=== PATIENT | female | born 1975 | race Hispanic/Latino ===

== ENCOUNTER 2023-05-14 08:29 | Emergency (ER) | payer BC, OTHER ==
[~2023-05-14] VITALS: Ht 172.7 cm; Wt 120.2 kg
[2023-05-14 09:11] LABS: HEMATOCRIT 39.8 % (36-48); MEAN CORPUSCULAR HEMOGLOBIN 28.1 pg (27.0-33.0); MEAN CORPUSCULAR HGB CONC 34.4 g/dL (32.0-36.0); MEAN CORPUSCULAR VOLUME 81.6 fL (79-99); PLATELET COUNT (AUTO) 230 K/uL (130-400); RED BLOOD CELL COUNT(AUTO) 4.88 MIL/uL (4.00-5.50); RED CELL DISTRIBUTION WIDTH 12.5 % (11.0-15.5); WHITE BLOOD COUNT (AUTO) 8.3 K/uL (4.8-10.8)
[2023-05-14 09:20] LABS: CREATININE 0.8 mg/dL (0.5-1.5)
[2023-05-14 09:25] LABS: ALBUMIN 3.6 g/dL (3.5-5.0); BILIRUBIN,TOTAL 0.5 mg/dL (0.2-1.0); TOTAL PROTEIN, SERUM 8.1 g/dL (6.0-8.3)
[2023-05-14] MEDS ORDERED: KETOROLAC 30MG VIAL (30MG/ML) IM ONE (09:30)
[2023-05-14] MEDS ORDERED: CEFTRIAXONE 2GM VIAL IVPB ONE (09:30)
[2023-05-14] MEDS ORDERED: PHENAZOPYRIDINE HCL 200 MG TABLET PO ONE (09:30)
[2023-05-14] MEDS ORDERED: METOCLOPRAMIDE 10 MG/2 ML VIAL IVP ONE (09:30)
[2023-05-14] MEDS ORDERED: FAMOTIDINE 20MG VIAL IV ONE (09:30)
[2023-05-14 09:38] LABS: APPEARANCE,URINE CLEAR (CLEAR); BILIRUBIN,URINE SMALL mg/dL (NEGATIVE); COLOR,URINE YELLOW (YELLOW); GLUCOSE, URINE (UA) >=1000 mg/dL (NEGATIVE); KETONES,URINE >=80 mg/dL (NEGATIVE); LEUKOCYTE ESTERASE ,URINE TRACE Leu/uL (NEGATIVE); NITRATE,URINE POSITIVE (NEGATIVE); OCCULT BLOOD,URINE LARGE (NEGATIVE); PH,URINE 6.5 (5.0-8.0); PROTEIN,URINE >=300 mg/dL (NEGATIVE)
[2023-05-14 09:42] LABS: ADD UA MICROSCOPIC YES
[2023-05-14 10:12] VITALS: BP 144/90; PULSE 68; RESP 18; O2SAT 96
[2023-05-14 10:24] LABS: RBC,URINE TNTC /HPF (0-1)
[2023-05-14 10:26] LABS: BACTERIA,URINE Few /HPF (None Seen)
[2023-05-14] MEDS ORDERED: INSULIN HUMULIN R 100 UNIT/ML 3ML IV ONE (10:30)
[2023-05-14] MEDS ORDERED: HYDRALAZINE 20MG/ML VIAL IV ONE (10:30)
[2023-05-14 10:42] LABS: BASOPHILS # (AUTO) 0.04 K/uL (0.00-0.20); BASOPHILS % (AUTO) 0.5 % (0.0-5.0); EOSINOPHILS # (AUTO) 0.07 K/uL (0.00-0.70); EOSINOPHILS % (AUTO) 0.9 % (0.0-8.0); IMMATURE GRANULOCYTE ABSOLUTE 0.02 K/uL (0-1); LYMPHOCYTES # (AUTO) 1.9 K/uL (1.0-4.8); LYMPHOCYTES % (AUTO) 22.6 % (21.0-51.0); MONOCYTES # (AUTO) 0.4 K/uL (0.1-1.0); MONOCYTES % (AUTO) 4.9 % (3.0-13.0); NEUTROPHILS # (AUTO) 5.8 K/uL (1.8-7.7); NEUTROPHILS % (AUTO) 70.9 % (40.0-77.0)
[2023-05-14] MEDS ORDERED: CEPH500B PO (12:14)
== END 2023-05-14 12:27 | disposition home or self-care (01) ==
LOC: EDH 08:29
DX: N39.0 Urinary tract infection, site not specified (principal); E11.65 Type 2 diabetes mellitus with hyperglycemia; I10 Essential (primary) hypertension; Z91.040 Latex allergy status; Z88.8 Allergy status to other drugs, medicaments and biological substances
CPT/HCPCS: 99284; 96365; 96375; 80053; 85025; 87077; 87088; 87186; 82948; 81001; 36415; 96372; J1815; J3490; J0696; J1885; J2765

== ENCOUNTER 2023-11-02 10:11 | Emergency (ER) | payer OTHER ==
[~2023-11-02] VITALS: Ht 172.7 cm; Wt 110.7 kg
[~2023-11-02 10:11] MED LIST: CEPH500B PO
[2023-11-02 12:35] VITALS: BP 135/85; PULSE 87; RESP 18; O2SAT 99
== END 2023-11-02 12:31 | disposition home or self-care (01) ==
LOC: EDH 10:11
DX: R20.2 Paresthesia of skin (principal); R20.0 Anesthesia of skin; I10 Essential (primary) hypertension; E11.9 Type 2 diabetes mellitus without complications; Z98.890 Other specified postprocedural states; Z88.5 Allergy status to narcotic agent; Z88.8 Allergy status to other drugs, medicaments and biological substances
CPT/HCPCS: 70450